=== PATIENT | female | born 1955 | race Caucasian/White ===

== ENCOUNTER → 2021-03-14 | Outpatient (CLI) | payer OTHER ==
[~2021-03-14] MED LIST: BUTALBITAL COM1 EACH PO; CARDIZEM CD120 MG PO; CLOBETASOL 0.0560 GM TP; ELIQUIS5 MG PO; EPIPEN 2-P0.3 MG/0.3 INJ; ESTRADIOL42.5 GM VG; IPRATROPIU0.2 MG/1 M; LEVOTHYROXINE100 MCG PO; LISINOPRIL5 MG PO; NORTRIPTYLINE H10 MG PO; PERCOCET 10-321 EACH PO; PROGESTERONE200 MG PO; TRAMADOL HCL50 MG PO; VITAMIN D21250 MCG PO
== END ==
LOC: MRI 12:51
DX: M67.442 Ganglion, left hand (principal)
CPT/HCPCS: 36415; 73220; 82565; A9577

== ENCOUNTER → 2021-12-19 | Outpatient (CLI) | payer OTHER | LOC: EMI 08:02 | DX: D32.9 Benign neoplasm of meninges, unspecified (principal) | CPT/HCPCS: 70551 ==

== ENCOUNTER → 2022-01-17 | Outpatient (CLI) | payer OTHER | LOC: MRI 13:46 | DX: D32.0 Benign neoplasm of cerebral meninges (principal); R90.89 Other abnormal findings on diagnostic imaging of central nervous system | CPT/HCPCS: 36415; 70552; 82565; 84520; A9577 ==

== ENCOUNTER → 2022-02-08 | Outpatient (CLI) | payer OTHER | LOC: CT 14:59 | DX: D32.9 Benign neoplasm of meninges, unspecified (principal) | CPT/HCPCS: 70496; Q9967 ==